=== PATIENT | male | born 1955 | race Caucasian/White ===

== ENCOUNTER 2017-06-21 15:44 | Inpatient (IN) ==
[2017-06-21 17:26] LABS: Basophils # 0.1 K/mcL (0.0-0.2); Basophils % 0.3 %; Eosinophils # 0.2 K/mcL (0.0-0.6); Eosinophils % 1.1 %; Hematocrit 40.9 % (37.5-50.1); Hemoglobin 14.3 g/dL (12.9-16.9); Immature Granulocytes % 0.6 % (0-4); Lymphocytes # 1.9 K/mcL (0.6-4.6); Lymphocytes % 10.7 %; Mean Corpuscular Hemoglobin 30.6 pg (28.0-33.3); Mean Corpuscular Volume 87.4 fL (83.0-100.0); Mean Platelet Volume 8.4 fL (9.4-12.4); Monocytes # 1.1 K/mcL (0.0-1.3); Monocytes % 6.1 %; Platelet Count 385 K/mcL (140-400); Red Blood Count 4.68 M/mcL (4.19-5.50); Red Cell Distribution Width 11.6 % (11.5-14.5); Segmented Neutrophils % 81.2 %
[2017-06-21] MEDS ORDERED: Ipratropium/Albuterol Neb 3 ML IH ONE (17:28)
[2017-06-21] MEDS ORDERED: Albuterol 2.5 MG/3 ML NEBULIZER IH ONE (17:28)
--- NOTE | 2017-06-21 17:31 | Emergency Department Note ---
Disposition Clinical Impression: Decompensated COPD with exacerbation (chronic obstructive pulmonary disease) Disposition: Admitted As Inpatient Condition: Serious General Adult HPI - General Chief complaint: ED Shortness of Breath/Dyspnea Stated complaint: EDILBERTO Time Seen by Provider: 06/21/17 17:27 Source: patient Limitations: no limitations - History of Present Illness Pain Scale: 0 - Related Data Home Medications Medication Instructions Recorded Confirmed Albuterol Sulfate [Proair Hfa] 2 puff IH QID 06/21/17 06/21/17 Ergocalciferol (VITAMIN D2) 50,000 unit PO QWEEK 06/21/17 06/21/17 [Vitamin D2] Fluticasone Propionate Nasal 2 spray NS DAILY 06/21/17 06/21/17 [Flonase] Fluticasone/Vilanterol [Breo 1 each IH DAILY 06/21/17 06/21/17 Ellipta 100-25 Mcg INH] Montelukast [Singulair] 10 mg PO DAILY 06/21/17 06/21/17 Naproxen [Naprosyn] 500 mg PO BID 06/21/17 06/21/17 Nystatin [Nystatin Suspension] 100,000 units PO QID 06/21/17 06/21/17 Sertraline [Zoloft] 50 mg PO DAILY 06/21/17 06/21/17 predniSONE [PredniSONE] 10 mg PO 06/21/17 Allergies Allergy/AdvReac Type Severity Reaction Status Date / Time No Known Allergies Allergy Verified 06/21/17 16:01 Past Medical History - Past Medical History Medical history: Reports: COPD Psychiatric history: Reports: depression - Social History Smoking Status: Current every day smoker Smokeless Tobacco Status: No Alcohol use: Reports: occasionally Drug use: Reports: none Physical Exam - General Limitations: no limitations General appearance: alert Course Vital Signs Temperature 98.2 F 06/21/17 16:01 Pulse Rate 94 06/21/17 16:01 Respiratory Rate 20 06/21/17 16:01 Blood Pressure 140/79 06/21/17 16:01 O2 Sat by Pulse Oximetry 96 06/21/17 16:01 Temperature 97.4 F L 06/21/17 23:34 Pulse Rate 102 06/21/17 23:34 Respiratory Rate 20 06/21/17 23:58 Blood Pressure 134/85 06/21/17 23:58 O2 Sat by Pulse Oximetry 98 06/21/17 23:58 Oxygen Delivery Oxygen Delivery Bipap Medical Decision Making - Lab Data Result diagrams: 06/21/17 17:15 06/21/17 22:04 Lab Results 06/21/17 06/21/17 06/21/17 Range/Units 17:15 17:15 17:15 WBC 17.3 H (4.3-11.1) K/mcL RBC 4.68 (4.19-5.50) M/mcL Hgb 14.3 (12.9-16.9) g/dL Hct 40.9 (37.5-50.1) % MCV 87.4 (83.0-100.0) fL MCH 30.6 (28.0-33.3) pg MCHC 35.0 (31.6-35.5) g/dL RDW 11.6 (11.5-14.5) % Plt Count 385 (140-400) K/mcL MPV 8.4 L (9.4-12.4) fL Immature Gran % 0.6 (0-4) % Seg Neutrophils % 81.2 % Lymphocytes % 10.7 % Monocytes % 6.1 % Eosinophils % 1.1 % Basophils % 0.3 % Neutrophils # 14.0 H (1.6-8.9) K/mcL Lymphocytes # 1.9 (0.6-4.6) K/mcL Monocytes # 1.1 (0.0-1.3) K/mcL Eosinophils # 0.2 (0.0-0.6) K/mcL Basophils # 0.1 (0.0-0.2) K/mcL VBG pH (7.32-7.42) pH Units VBG pCO2 (41-51) mmHg VBG pO2 (25-50) mmHg VBG HCO3 (21-27) mEq/L Sodium 124 L (136-145) mEq/L Potassium 4.5 (3.5-5.1) mEq/L Chloride 90 L (98-107) mEq/L Carbon Dioxide 29 (23-29) mEq/L BUN 7 L (8-23) mg/dL Creatinine 0.47 L (0.70-1.30) mg/dL Est GFR ( Amer) > 60 (> 60) Est GFR (Non-Af Amer) > 60 (> 60) BUN/Creatinine Ratio 15 (6-26) Glucose 108 H (70-105) mg/dL Calculated Osmolality 257 L (280-300) Calcium 9.0 (8.6-10.3) mg/dL Total Bilirubin 0.8 (0.3-1.0) mg/dL AST 23 (13-39) Units/L ALT 28 (7-52) Units/L Alkaline Phosphatase 107 H (34-104) Units/L Troponin I < 0.03 (< 0.04) ng/mL B-Natriuretic Peptide (Less than 100) pg/mL Serum Total Protein 6.6 (6.4-8.9) g/dL Albumin 4.0 (3.5-5.7) g/dL Globulin 2.6 (2.4-3.5) g/dL Albumin/Globulin Ratio 1.5 (1.1-2.2) 06/21/17 06/21/17 Range/Units 17:15 19:13 WBC (4.3-11.1) K/mcL RBC (4.19-5.50) M/mcL Hgb (12.9-16.9) g/dL Hct (37.5-50.1) % MCV (83.0-100.0) fL MCH (28.0-33.3) pg MCHC (31.6-35.5) g/dL RDW (11.5-14.5) % Plt Count (140-400) K/mcL MPV (9.4-12.4) fL Immature Gran % (0-4) % Seg Neutrophils % % Lymphocytes % % Monocytes % % Eosinophils % % Basophils % % Neutrophils # (1.6-8.9) K/mcL Lymphocytes # (0.6-4.6) K/mcL Monocytes # (0.0-1.3) K/mcL Eosinophils # (0.0-0.6) K/mcL Basophils # (0.0-0.2) K/mcL VBG pH 7.36 (7.32-7.42) pH Units VBG pCO2 54 H (41-51) mmHg VBG pO2 118 H (25-50) mmHg VBG HCO3 31 H (21-27) mEq/L Sodium (136-145) mEq/L Potassium (3.5-5.1) mEq/L Chloride (98-107) mEq/L Carbon Dioxide (23-29) mEq/L BUN (8-23) mg/dL Creatinine (0.70-1.30) mg/dL Est GFR ( Amer) (> 60) Est GFR (Non-Af Amer) (> 60) BUN/Creatinine Ratio (6-26) Glucose (70-105) mg/dL Calculated Osmolality (280-300) Calcium (8.6-10.3) mg/dL Total Bilirubin (0.3-1.0) mg/dL AST (13-39) Units/L ALT (7-52) Units/L Alkaline Phosphatase (34-104) Units/L Troponin I (< 0.04) ng/mL B-Natriuretic Peptide 63 (Less than 100) pg/mL Serum Total Protein (6.4-8.9) g/dL Albumin (3.5-5.7) g/dL Globulin (2.4-3.5) g/dL Albumin/Globulin Ratio (1.1-2.2) Critical Care Time Critical Care Time: Yes Total Critical Care Time: 30 Attestation: The high probability of a clinically significant, sudden or life threatening deterioration of the [] system(s) required my full and direct attention, intervention and personal management. The aggregate critical care time was [] minutes. This time is in addition to time spent performing reported procedures but includes the following: [] Data Review and interpretation [] Patient assessment and monitoring of vital signs [] Documentation [] Medication orders and management Attestation Statement - Attestation Attestation: I examined this patient and my medical decision-making was reviewed with the Resident Physician. I agree with the documented findings, disposition and treatment plan as described except to the extent set forth below. [id number] time provided Patient arrives in the care of his family complaining of dyspnea. He has a history of COPD. Sounds congested on exam. 18:58: The patient continues to be dyspneic. He is now anxious. BiPAP therapy initiated
--- NOTE | 2017-06-21 17:31 | Emergency Department Note ---
Disposition Clinical Impression: Decompensated COPD with exacerbation (chronic obstructive pulmonary disease) Disposition: Admitted As Inpatient Condition: Serious Time of Disposition: 19:31 SOB HPI - General Chief Complaint: ED Shortness of Breath/Dyspnea Stated Complaint: EDILBERTO Time Seen by Provider: 06/21/17 17:27 Source: patient Limitations: no limitations Nursing Notes Reviewed: Yes Vital Signs Reviewed: Yes - History of Present Illness Patient complains of worsening shortness of breath that started early this morning. Patient states at around 3 PM today he became unable to tolerate his shortness of breath with chest tightness. Patient has history COPD and his been on repeat treatments for the past month. he denies any fevers or chest pain. - Related Data Home Medications Medication Instructions Recorded Confirmed Albuterol Sulfate [Proair Hfa] 2 puff IH QID 06/21/17 06/21/17 Ergocalciferol (VITAMIN D2) 50,000 unit PO QWEEK 06/21/17 06/21/17 [Vitamin D2] Fluticasone Propionate Nasal 2 spray NS DAILY 06/21/17 06/21/17 [Flonase] Fluticasone/Vilanterol [Breo 1 each IH DAILY 06/21/17 06/21/17 Ellipta 100-25 Mcg INH] Montelukast [Singulair] 10 mg PO DAILY 06/21/17 06/21/17 Naproxen [Naprosyn] 500 mg PO BID 06/21/17 06/21/17 Nystatin [Nystatin Suspension] 100,000 units PO QID 06/21/17 06/21/17 Sertraline [Zoloft] 50 mg PO DAILY 06/21/17 06/21/17 predniSONE [PredniSONE] 10 mg PO 06/21/17 Allergies Allergy/AdvReac Type Severity Reaction Status Date / Time No Known Allergies Allergy Verified 06/21/17 16:01 All systems ED: reviewed and negative except as stated. Review of Systems: As Per HPI Constitutional: Denies: fever Eyes: Denies: vision change ENT ED: Reports: congestion Cardiovascular: Denies: chest pain, palpitations Respiratory: Reports: cough, dyspnea, wheezes Gastrointestinal: Denies: abdominal pain, nausea, vomiting Past Medical History - Past Medical History Attestation: Yes The following information was validated with the patient. Source: patient, nursing notes reviewed Medical history: Reports: COPD Psychiatric history: Reports: depression - Social History Smoking Status: Current every day smoker Smokeless Tobacco Status: No Alcohol use: Reports: occasionally Drug use: Reports: none Physical Exam Vital Signs Temperature 98.2 F 06/21/17 16:01 Pulse Rate 94 06/21/17 16:01 Respiratory Rate 20 06/21/17 16:01 Blood Pressure 140/79 06/21/17 16:01 O2 Sat by Pulse Oximetry 96 06/21/17 16:01 Temperature 98.2 F 06/21/17 16:01 Pulse Rate 94 06/21/17 16:01 Respiratory Rate 24 06/21/17 17:33 Blood Pressure 140/79 06/21/17 16:01 O2 Sat by Pulse Oximetry 96 06/21/17 17:33 Oxygen Delivery Oxygen Delivery Room Air 61-year-old male who is alert and oriented 3 and in acute respiratory distress. Patient has conversational dyspnea and hoarseness. Patient sounds like he is gasping for air. Patient is currently afebrile and has normal vital signs. - General Limitations: no limitations General appearance: alert - Head Head exam: atraumatic, normocephalic, normal inspection - Eye Eye exam: Present: normal appearance, PERRL, EOMI - ENT ENT exam: normal exam, normal oropharynx, mucous membranes moist - Neck Neck exam: Present: normal inspection, full ROM, trachea midline - Chest Chest inspection: Present: normal inspection, symmetric chest wall rise. Absent : tenderness - Respiratory Respiratory exam: Present: respiratory distress, prolonged expiratory phase, other (Poor air movement bilaterally) - Cardiovascular Cardiovascular exam: Present: regular rate, normal rhythm, normal heart sounds - Abdominal Exam Abdominal exam: Present: soft, Non-Tender. Absent: tenderness, distention, guarding, rebound, rigidity Course Vital Signs Temperature 98.2 F 06/21/17 16:01 Pulse Rate 94 06/21/17 16:01 Respiratory Rate 20 06/21/17 16:01 Blood Pressure 140/79 06/21/17 16:01 O2 Sat by Pulse Oximetry 96 06/21/17 16:01 Temperature 97.4 F L 06/21/17 23:34 Pulse Rate 102 06/21/17 23:34 Respiratory Rate 23 06/21/17 23:34 Blood Pressure 134/83 06/21/17 23:34 O2 Sat by Pulse Oximetry 97 06/21/17 23:34 Oxygen Delivery Oxygen Delivery Bipap Shortness of Breath/Dyspnea - [facility] Narrative Medical decision making narrative: COPD exacerbation, patient is tachycardic to rule out any underlying cardiac pathology with lab work EKG and chest x-ray. 1821 hrs.: Patient is breathing better and has lessened conversational dyspnea but states he is feeling tired from breathing on the DuoNeb. Patient states he does not want to try BiPAP. Patient will be reevaluated once DuoNeb to complete. Patient's lab work unremarkable for elevations of troponin, 1845: Patient sitting up at the side of the bed and having a difficult time breathing. Patient is tiring from respiratory load. Patient requires BiPAP and will be given 1 mg of Ativan to help calm him down to tolerate BiPAP. 1715 hrs.: Still waiting BiPAP Patient on BiPAP now and is calming down. He states he is feeling all better. Patient's VBG shows elevation of bicarbonate which is appropriate for patient's rise in CO2. Patient being admitted for COPD exacerbation requiring BiPAP to to prevent respiratory failure. Patient accepts this is for admission. Dr. Davis the hospitalist as except the patient for admission at 1929 hrs. - Lab Data Lab results reviewed: Yes I reviewed the patient's lab results. Lab results narrative: Short CBC 06/21/17 Range/Units 17:15 WBC 17.3 H (4.3-11.1) K/mcL Hgb 14.3 (12.9-16.9) g/dL Hct 40.9 (37.5-50.1) % Plt Count 385 (140-400) K/mcL Neutrophils # 14.0 H (1.6-8.9) K/mcL BMP 06/21/17 Range/Units 17:15 Sodium 124 L (136-145) mEq/L Potassium 4.5 (3.5-5.1) mEq/L Chloride 90 L (98-107) mEq/L Carbon Dioxide 29 (23-29) mEq/L BUN 7 L (8-23) mg/dL Creatinine 0.47 L (0.70-1.30) mg/dL Glucose 108 H (70-105) mg/dL Calcium 9.0 (8.6-10.3) mg/dL Cardiac Enzymes 06/21/17 Range/Units 17:15 Troponin I < 0.03 (< 0.04) ng/mL Liver Function 06/21/17 Range/Units 17:15 Total Bilirubin 0.8 (0.3-1.0) mg/dL AST 23 (13-39) Units/L ALT 28 (7-52) Units/L Alkaline Phosphatase 107 H (34-104) Units/L Albumin 4.0 (3.5-5.7) g/dL Result diagrams: 06/21/17 17:15 06/21/17 22:04 Lab Results 06/21/17 06/21/17 06/21/17 Range/Units 17:15 17:15 17:15 WBC 17.3 H (4.3-11.1) K/mcL RBC 4.68 (4.19-5.50) M/mcL Hgb 14.3 (12.9-16.9) g/dL Hct 40.9 (37.5-50.1) % MCV 87.4 (83.0-100.0) fL MCH 30.6 (28.0-33.3) pg MCHC 35.0 (31.6-35.5) g/dL RDW 11.6 (11.5-14.5) % Plt Count 385 (140-400) K/mcL MPV 8.4 L (9.4-12.4) fL Immature Gran % 0.6 (0-4) % Seg Neutrophils % 81.2 % Lymphocytes % 10.7 % Monocytes % 6.1 % Eosinophils % 1.1 % Basophils % 0.3 % Neutrophils # 14.0 H (1.6-8.9) K/mcL Lymphocytes # 1.9 (0.6-4.6) K/mcL Monocytes # 1.1 (0.0-1.3) K/mcL Eosinophils # 0.2 (0.0-0.6) K/mcL Basophils # 0.1 (0.0-0.2) K/mcL VBG pH (7.32-7.42) pH Units VBG pCO2 (41-51) mmHg VBG pO2 (25-50) mmHg VBG HCO3 (21-27) mEq/L Sodium 124 L (136-145) mEq/L Potassium 4.5 (3.5-5.1) mEq/L Chloride 90 L (98-107) mEq/L Carbon Dioxide 29 (23-29) mEq/L BUN 7 L (8-23) mg/dL Creatinine 0.47 L (0.70-1.30) mg/dL Est GFR ( Amer) > 60 (> 60) Est GFR (Non-Af Amer) > 60 (> 60) BUN/Creatinine Ratio 15 (6-26) Glucose 108 H (70-105) mg/dL Calculated Osmolality 257 L (280-300) Calcium 9.0 (8.6-10.3) mg/dL Total Bilirubin 0.8 (0.3-1.0) mg/dL AST 23 (13-39) Units/L ALT 28 (7-52) Units/L Alkaline Phosphatase 107 H (34-104) Units/L Troponin I < 0.03 (< 0.04) ng/mL B-Natriuretic Peptide (Less than 100) pg/mL Serum Total Protein 6.6 (6.4-8.9) g/dL Albumin 4.0 (3.5-5.7) g/dL Globulin 2.6 (2.4-3.5) g/dL Albumin/Globulin Ratio 1.5 (1.1-2.2) 06/21/17 06/21/17 Range/Units 17:15 19:13 WBC (4.3-11.1) K/mcL RBC (4.19-5.50) M/mcL Hgb (12.9-16.9) g/dL Hct (37.5-50.1) % MCV (83.0-100.0) fL MCH (28.0-33.3) pg MCHC (31.6-35.5) g/dL RDW (11.5-14.5) % Plt Count (140-400) K/mcL MPV (9.4-12.4) fL Immature Gran % (0-4) % Seg Neutrophils % % Lymphocytes % % Monocytes % % Eosinophils % % Basophils % % Neutrophils # (1.6-8.9) K/mcL Lymphocytes # (0.6-4.6) K/mcL Monocytes # (0.0-1.3) K/mcL Eosinophils # (0.0-0.6) K/mcL Basophils # (0.0-0.2) K/mcL VBG pH 7.36 (7.32-7.42) pH Units VBG pCO2 54 H (41-51) mmHg VBG pO2 118 H (25-50) mmHg VBG HCO3 31 H (21-27) mEq/L Sodium (136-145) mEq/L Potassium (3.5-5.1) mEq/L Chloride (98-107) mEq/L Carbon Dioxide (23-29) mEq/L BUN (8-23) mg/dL Creatinine (0.70-1.30) mg/dL Est GFR ( Amer) (> 60) Est GFR (Non-Af Amer) (> 60) BUN/Creatinine Ratio (6-26) Glucose (70-105) mg/dL Calculated Osmolality (280-300) Calcium (8.6-10.3) mg/dL Total Bilirubin (0.3-1.0) mg/dL AST (13-39) Units/L ALT (7-52) Units/L Alkaline Phosphatase (34-104) Units/L Troponin I (< 0.04) ng/mL B-Natriuretic Peptide 63 (Less than 100) pg/mL Serum Total Protein (6.4-8.9) g/dL Albumin (3.5-5.7) g/dL Globulin (2.4-3.5) g/dL Albumin/Globulin Ratio (1.1-2.2) - Radiology Data Radiology results reviewed: Yes I reviewed the patient's radiology results. Chest X-Ray 06/21/17 16:05 IMPRESSION: No acute disease. D/ / Blayne Stewart MD / Blayne Stewart MD Interpreting Provider: Blayne Stewart MD - EKG Data EKG attestation: Yes I reviewed and interpreted this EKG. EKG results narrative: EKG taken 06/21/2017 at 1557 hrs. shows a sinus rhythm at a rate of 89 beats minute with no acute ST elevations or depressions and any leads, no QRS widened QT prolongation.
[2017-06-21 17:42] LABS: Alanine Aminotransferase 28 Units/L (7-52); Albumin/Globulin Ratio 1.5 (1.1-2.2); Alkaline Phosphatase 107 Units/L (34-104); Aspartate Amino Transferase 23 Units/L (13-39); BUN/Creatinine Ratio 15 (6-26); Bilirubin,Total 0.8 mg/dL (0.3-1.0); Blood Urea Nitrogen 7 mg/dL (8-23); Carbon Dioxide 29 mEq/L (23-29); Chloride 90 mEq/L (98-107); Globulin 2.6 g/dL (2.4-3.5); Glucose 108 mg/dL (70-105); Osmolality,Calculated 257 (280-300); Potassium 4.5 mEq/L (3.5-5.1); Sodium 124 mEq/L (136-145); Total Protein 6.6 g/dL (6.4-8.9); eGFR For African Americans > 60 (> 60); eGFR For Non-African Americans > 60 (> 60)
[2017-06-21] MEDS ORDERED: methylPREDNISolone 125 MG/2 ML VIAL IVP ONE (18:13)
[2017-06-21] MEDS ORDERED: 0.9 % Sodium Chloride 1,000 ML IVC ONE (18:13)
[2017-06-21] MEDS ORDERED: *HR* LORazepam 2 MG/ML VIAL IVP ONE (18:57)
[2017-06-21 19:17] LABS: VBG HCO3 31 mEq/L (21-27); VBG PCO2 54 mmHg (41-51); VBG PH 7.36 pH Units (7.32-7.42); VBG PO2 118 mmHg (25-50)
[2017-06-21] MEDS ORDERED: Naloxone 0.4 MG/ML INJ IVP PRN (19:47)
[2017-06-21] MEDS ORDERED: Acetaminophen 325 MG TABLET PO PRN (19:47)
[2017-06-21] MEDS ORDERED: Azithromycin 500 MG in D5% in Water 250 ML IVPB SCH (20:00)
[2017-06-21] MEDS ORDERED: Ipratropium 1 PUFF INHALER IH SCH (20:00)
--- NOTE | 2017-06-21 21:22 | Internal Med History&Physical ---
Date of Encounter: 06/21/17 Time of Encounter: 08:20 Assessment and Plan (1) Acute hypercapnic respiratory failure Current visit: Yes Status: Acute Admit inpatient. Will treat with O2 supplementation. BiPAP use as needed. Patient is currently on BiPAP. Will wean as tolerated. High risk for complications. (2) Hyponatremia Current visit: Yes Status: Acute Sodium 124 and chloride 90. Likely hypovolemic hyponatremia. We will treat with IV fluids. Would also check urine electrolytes and sodium levels. (3) Decompensated COPD with exacerbation (chronic obstructive pulmonary disease) Current visit: Yes Status: Acute Patient does have acute COPD exacerbation. Will treat with bronchodilators, O2 supplementation. IV azithromycin and IV steroids. Will get CT scan of the chest as chest x-ray shows changes of chronic granulomatous disease. Internal Medicine - H&P: HPI Chief complaint: Shortness of breath Admitted From: Emergency Dept Plans for Post Hospital Care: Home History of present illness: Mr. Farooq is a 61 year old male patient with past medical history of COPD, chronic smoking presented to the ER with complaints of shortness of breath. Symptoms have been going on for about 4 weeks now with no improvement. He had been seen at an urgent care clinic 4 weeks back for his symptoms and at that time was placed on steroids and given inhalers. His symptoms have not improved and he has continued to have cough and significant shortness of breath. According to patient's family, he had been advised to undergo a CT scan of the chest after his chest x-ray showed an abnormal lesion. However he has not been able to get that done due to issues with insurance and radiology Department. He is presently somnolent as he was given Ativan for anxiety and so most of the history has been obtained from family members and through review of ED record. Patient has been having cough without any sputum production. Has not had any chest pain. Patient used to smoke 3 packs per day until he was diagnosed with COPD. He is now cutting down to less than pack a day. 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 - Constitutional Constitutional: malaise, no chills, no fever(s), no night sweats - Respiratory Respiratory: cough, dyspnea, wheezing - Constitutional Vitals: Temp Pulse Resp BP Pulse Ox 98.2 F 101 21 114/74 95 06/21/17 16:01 06/21/17 19:06 06/21/17 20:55 06/21/17 20:28 06/21/17 20:55 General appearance: Present: cooperative, severe distress, underweight - Neck Neck exam general surgery: Present: supple, trachea midline. Absent: lymphadenopathy - Respiratory Respiratory exam: Present: prolonged expiratory phase, respiratory distress, wheezes (Bilateral). Absent: accessory muscle use, rales, rhonchi - Cardiovascular Cardiovascular exam: Present: RRR, +S1, +S2. Absent: diastolic murmur, gallop, rubs, systolic murmur - GI/Abdominal GI/Abdominal exam: Present: normal bowel sounds, soft, no peritoneal signs. Absent: distended, tenderness - Extremities Exam Extremities exam: Present: warm, radial pulses palpable and symmetrical. Absent : calf tenderness, cyanotic, pedal edema - Neurological Exam Neurological exam: Present: no focal deficits. Absent: facial droop, speech deficit Additional comments: Somnolent at this time - Skin Skin exam: Present: dry, intact Internal Med - H&P Results - Labs CBC & Chem 7: 06/21/17 17:15 06/21/17 17:15 - Impressions Impressions Chest X-Ray 06/21/17 16:05 IMPRESSION: No acute disease. D/ / Blayne Stewart MD / Blayne Stewart MD Interpreting Provider: Blayne Stewart MD
[2017-06-21] MEDS: Albuterol 2.5 MG/3 ML NEBULIZER IH PRN (21:34)
[2017-06-21] MEDS: Budesonide/Formoterol 160/4.5 MDI IH SCH (21:35)
[2017-06-21] MEDS: 0.9 % Sodium Chloride 1,000 ML IVC SCH (22:13)
[2017-06-21] MEDS: Ipratropium/Albuterol Neb 3 ML IH SCH (23:58)
[2017-06-22] MEDS: MethylPREDNISolone 40 MG/ML VIAL IVP SCH ×4 (00:30→16:54)
[2017-06-22] MEDS: Ipratropium/Albuterol Neb 3 ML IH SCH ×6 (05:17→23:04)
[2017-06-22 05:39] LABS: Basophils % 0.1 %; Mean Corpuscular HGB Conc 33.7 g/dL (31.6-35.5); Monocytes % 1.9 %; Red Cell Distribution Width 11.7 % (11.5-14.5)
[2017-06-22 05:41] LABS: Hematocrit 40.1 % (37.5-50.1); Hemoglobin 13.5 g/dL (12.9-16.9); Immature Granulocytes % 0.6 % (0-4); Lymphocytes # 0.6 K/mcL (0.6-4.6); Lymphocytes % 2.1 %; Mean Corpuscular Hemoglobin 30.1 pg (28.0-33.3); Mean Corpuscular Volume 89.5 fL (83.0-100.0); Mean Platelet Volume 8.7 fL (9.4-12.4); Monocytes # 0.6 K/mcL (0.0-1.3); Platelet Count 379 K/mcL (140-400); Red Blood Count 4.48 M/mcL (4.19-5.50); Segmented Neutrophils % 95.3 %
[2017-06-22 05:43] LABS: Neutrophils # 28.1 K/mcL (1.6-8.9)
[2017-06-22 05:56] LABS: BUN/Creatinine Ratio 20 (6-26); Blood Urea Nitrogen 10 mg/dL (8-23); Calcium 8.9 mg/dL (8.6-10.3); Carbon Dioxide 32 mEq/L (23-29); Chloride 90 mEq/L (98-107); Glucose 135 mg/dL (70-105); Osmolality,Calculated 263 (280-300); Potassium 4.9 mEq/L (3.5-5.1); Sodium 126 mEq/L (136-145); eGFR For African Americans > 60 (> 60); eGFR For Non-African Americans > 60 (> 60)
[2017-06-22 06:13] LABS: Platelet Estimate Normal (Normal); Reactive Lymphocytes Present (Not Present)
[2017-06-22 07:45] LABS: Bilirubin,Urine Negative (Negative); Blood,Urine Small (Negative); Clarity,Urine Clear (Clear); Color,Urine Yellow (Yellow); Glucose,Urine (UA) Normal (Normal); Ketones,Urine Negative (Negative); Leukocyte Esterase,Urine Negative (Negative); Nitrite,Urine Negative (Negative); PH,Urine 6.5 pH Units (5.0-8.0); Protein,Urine Negative (Neg-Trace); Specific Gravity,Urine 1.019 (1.010-1.025); Urobilinogen,Urine Normal (Normal)
[2017-06-22 07:47] LABS: Hyaline Casts,Urine None Seen per lpf (None-Few)
[2017-06-22 07:49] LABS: Sodium, Urine 117.1 mEq/L
[2017-06-22 08:07] LABS: Bacteria,Urine Few per hpf (None-Few); Squamous Epithelial Cell,Urine Few per lpf (None-Few)
[2017-06-22] MEDS: Budesonide/Formoterol 160/4.5 MDI IH SCH ×2 (08:15→21:23)
[2017-06-22] MEDS: 0.9 % Sodium Chloride 1,000 ML IVC SCH ×3 (08:31→21:40)
[2017-06-22] MEDS: Levofloxacin 750 MG/150 ML 750 MG/150 ML BAG IVPB SCH (08:31)
[2017-06-22 11:02] LABS: Adenovirus Not Detected (Not Detect); Bordetella Pertussis Not Detected (Not Detect); Chlamydophila pneumoniae Not Detected (Not Detect); Coronavirus 229E Not Detected (Not Detect); Coronavirus HKU1 Not Detected (Not Detect); Coronavirus NL63 Not Detected (Not Detect); Coronavirus OC43 Not Detected (Not Detect); Human Metapneumovirus Not Detected (Not Detect); Human Rhinovirus/Enterovirus Not Detected (Not Detect); Influenza A Subtype 2009 H1 Not Detected (Not Detect); Influenza A Untypeable Not Detected (Not Detect); Influenza B Not Detected (Not Detect); Mycoplasma pneumoniae Not Detected (Not Detect); Parainfluenza Virus 1 Not Detected (Not Detect); Parainfluenza Virus 2 Not Detected (Not Detect); Parainfluenza Virus 3 Not Detected (Not Detect); Parainfluenza Virus 4 Not Detected (Not Detect); Respiratory Syncytial Virus Not Detected (Not Detect)
--- NOTE | 2017-06-22 15:21 | Internal Med Progress Note ---
Date of Encounter: 06/22/17 Time of Encounter: 13:00 - Assessment and plan (1) Acute respiratory failure with hypoxia Current Visit: Yes Status: Acute Assessment and plan: Improving slowly currently on 3 lit O2 cont Duoneb TATYANA Cont high dose IV Steroids..since he still does have diffuse wheezing will use BiPAP PRN May need home O2 eval (2) Acute hypercapnic respiratory failure Current Visit: Yes Status: Acute Assessment and plan: Reviewed VBG from last night showed moderate hypercapnea now off the BiPAP he is more alert, awake and O x 3 (3) COPD with acute exacerbation Current Visit: Yes Status: Acute Assessment and plan: must be triggered by bronchitis and smoking with his chronic weight loss, SOB for x 1 month will get a CT of chest for better eval scheduled for PFT as an out pt (4) Acute bronchitis Current Visit: Yes Status: Acute Assessment and plan: mostly bacterial cont empirical abx His resp viral panel - negative Qualifiers: Qualified Code(s): J20.9 - Acute bronchitis, unspecified (5) Tobacco dependence Current Visit: Yes Status: Acute Assessment and plan: counseled to quit on nicotine patch (6) Alcohol dependence Current Visit: Yes Status: Acute Assessment and plan: counseled to stop drinking he has not have alcohol for one week unlikely he goes to withdrawl symptoms however will monitor closely check LFT and Mg in AM on Ativan PRN for anxiety Qualifiers: Complication of substance-induced condition: uncomplicated Qualified Code(s ): F10.230 - Alcohol dependence with withdrawal, uncomplicated (7) Protein-calorie malnutrition, mild Current Visit: Yes Status: Acute Assessment and plan: utility service worker consulted (8) Hyponatremia Current Visit: Yes Status: Acute Assessment and plan: mild hyponatremia - due to dehydration + Chronic alcohol related improving slowly cont close monitoring will check Na and Mg level now.. adjust fluids accordingly - Subjective Interval history: Mr. Farooq is a 61 year old male patient with past medical history of COPD, chronic smoking, chronic alcoholic dependence who presented to the ER with complaints worsening SOB from last one week. Symptoms have been going on for about 4 weeks now with no improvement. He had been seen at an urgent care clinic 4 weeks back for his symptoms and at that time was placed on steroids and given inhalers. His symptoms have not improved and he has continued to have cough and significant shortness of breath. According to patient's family, he had been advised to undergo a CT scan of the chest after his chest x-ray showed an abnormal lesion. However he has not been able to get that done due to issues with insurance and radiology Department. Patient used to smoke 3 packs per day until he was diagnosed with COPD. He is now cutting down to less than pack a day He was admitted in the hospital with COPD exacerbation, hypoxic and hypercapneic resp failure. Now he is off the BiPAP, he is alert, awake and O x 3. Still has moderate SOB and NICOLE. Denied any CP. He did mention that he drinks 12 beer a day, but he has not have alcohol for one week. - Constitutional Vitals: Temp Pulse Resp BP Pulse Ox 98.1 F 98 18 115/74 98 06/22/17 11:15 06/22/17 11:15 06/22/17 11:26 06/22/17 11:15 06/22/17 11:26 General appearance: Present: cooperative, A&O X 3, underweight, answers questions appropriately - Head Head exam: Present: atraumatic, normal inspection - Neck Neck exam general surgery: Present: supple - Respiratory Respiratory exam: Present: decreased breath sounds, wheezes (diffuse +++). Absent: rales, respiratory distress, rhonchi - Cardiovascular Cardiovascular exam: Present: RRR, +S1, +S2. Absent: tachycardia - GI/Abdominal GI/Abdominal exam: Present: normal bowel sounds, soft. Absent: rebound, rigid, tenderness - Extremities Exam Extremities exam: Absent: calf tenderness, pedal edema, tenderness Additional comments: Rt BKA - Back Exam Back exam: Absent: CVA tenderness (L), CVA tenderness (R) - Neurological Exam Neurological exam: Present: alert, oriented X3 - Psychiatric Psychiatric exam: Present: anxious Internal Medicine: Result - Labs CBC & Chem 7: 06/22/17 05:16 06/22/17 05:16 Labs: Short CBC 06/22/17 Range/Units 05:16 WBC 29.5 H D (4.3-11.1) K/mcL Hgb 13.5 (12.9-16.9) g/dL Hct 40.1 (37.5-50.1) % Plt Count 379 (140-400) K/mcL Neutrophils # 28.1 H (1.6-8.9) K/mcL BMP 06/21/17 06/22/17 06/22/17 22:04 00:37 01:40 Sodium 126 L 125 L 125 L Potassium Chloride Carbon Dioxide BUN Creatinine Glucose Calcium 06/22/17 05:16 Sodium 126 L Potassium 4.9 Chloride 90 L Carbon Dioxide 32 H BUN 10 Creatinine 0.50 L Glucose 135 H Calcium 8.9 Urine 06/22/17 Range/Units 07:30 Urine Color Yellow (Yellow) Urine Clarity Clear (Clear) Urine pH 6.5 (5.0-8.0) pH Units Ur Specific [place] 1.019 (1.010-1.025) Urine Protein Negative (Neg-Trace) mg/dL Urine Glucose (UA) Normal (Normal) mg/dL Consult Discharge Plan - Plan Referrals: Sandra Aguirre MD [Primary Care Provider] -
[2017-06-22 16:03] LABS: Magnesium 1.9 mg/dL (1.6-2.6)
[2017-06-22] MEDS: *HR* LORazepam 0.5 MG TABLET PO PRN (21:39)
[2017-06-23] MEDS: MethylPREDNISolone 40 MG/ML VIAL IVP SCH ×3 (00:03→15:57)
[2017-06-23] MEDS: Ipratropium/Albuterol Neb 3 ML IH SCH ×3 (03:52→11:48)
[2017-06-23] MEDS: Budesonide/Formoterol 160/4.5 MDI IH SCH ×2 (07:52→22:32)
[2017-06-23 08:15] LABS: Mean Platelet Volume 8.9 fL (9.4-12.4); Monocytes % 2.8 %
[2017-06-23 08:17] LABS: Basophils % 0.2 %; Hematocrit 35.3 % (37.5-50.1); Hemoglobin 11.7 g/dL (12.9-16.9); Lymphocytes # 0.7 K/mcL (0.6-4.6); Lymphocytes % 2.8 %; Mean Corpuscular HGB Conc 33.1 g/dL (31.6-35.5); Mean Corpuscular Hemoglobin 29.7 pg (28.0-33.3); Mean Corpuscular Volume 89.6 fL (83.0-100.0); Monocytes # 0.7 K/mcL (0.0-1.3); Neutrophils # 23.7 K/mcL (1.6-8.9); Platelet Count 341 K/mcL (140-400); Red Blood Count 3.94 M/mcL (4.19-5.50); Red Cell Distribution Width 11.7 % (11.5-14.5); Segmented Neutrophils % 93.2 %
[2017-06-23 08:21] LABS: Basophils # 0.1 K/mcL (0.0-0.2)
[2017-06-23 09:03] LABS: Platelet Estimate Normal (Normal)
[2017-06-23] MEDS: Levofloxacin 750 MG/150 ML 750 MG/150 ML BAG IVPB SCH (09:07)
[2017-06-23 09:28] LABS: Alanine Aminotransferase 22 Units/L (7-52); Albumin 3.2 g/dL (3.5-5.7); Albumin/Globulin Ratio 1.6 (1.1-2.2); Alkaline Phosphatase 79 Units/L (34-104); Aspartate Amino Transferase 14 Units/L (13-39); BUN/Creatinine Ratio 26 (6-26); Bilirubin,Total 0.4 mg/dL (0.3-1.0); Blood Urea Nitrogen 11 mg/dL (8-23); Calcium 8.7 mg/dL (8.6-10.3); Carbon Dioxide 33 mEq/L (23-29); Chloride 100 mEq/L (98-107); Glucose 123 mg/dL (70-105); Magnesium 2.1 mg/dL (1.6-2.6); Osmolality,Calculated 281 (280-300); Potassium 4.3 mEq/L (3.5-5.1); Sodium 135 mEq/L (136-145); Total Protein 5.2 g/dL (6.4-8.9); eGFR For African Americans > 60 (> 60); eGFR For Non-African Americans > 60 (> 60)
--- NOTE | 2017-06-23 12:26 | Internal Med Progress Note ---
Date of Encounter: 06/23/17 Time of Encounter: 12:25 - Assessment and plan (1) Pneumonia Current Visit: Yes Status: Acute Assessment and plan: CT chest findings concerning for b/l Lower lobe PNA (right greater than left) continue Levaquin f/u blood cultures Qualifiers: Pneumonia type: due to unspecified organism Laterality: bilateral Lung location: lower lobe of lung Qualified Code(s): J18.9 - Pneumonia, unspecified organism (2) Acute bronchitis Current Visit: Yes Status: Acute Assessment and plan: mostly bacterial cont empirical abx His resp viral panel - negative Qualifiers: Qualified Code(s): J20.9 - Acute bronchitis, unspecified (3) Acute hypercapnic respiratory failure Current Visit: Yes Status: Acute Assessment and plan: clinically improving saturating well on nasal cannula will need O2 qualification testing prior to discharge Bipap at bedtime (4) Acute respiratory failure with hypoxia Current Visit: Yes Status: Acute Assessment and plan: Improving slowly currently on 3 lit O2 cont Duoneb TATYANA Cont high dose IV Steroids..since he still does have diffuse wheezing will use BiPAP PRN will need home O2 eval (5) Alcohol dependence Current Visit: Yes Status: Acute Assessment and plan: counseled to stop drinking he has not have alcohol for one week unlikely he goes to withdrawal symptoms however will monitor closely on Ativan PRN for anxiety Qualifiers: Complication of substance-induced condition: uncomplicated Qualified Code(s ): F10.230 - Alcohol dependence with withdrawal, uncomplicated (6) COPD with acute exacerbation Current Visit: Yes Status: Acute Assessment and plan: continue systemic steroids bronchodilator support o2 supplementation outpatient PFT evaluation (7) Hyponatremia Current Visit: Yes Status: Acute Assessment and plan: mild hyponatremia - due to dehydration + Chronic alcohol related improving slowly cont close monitoring (8) Protein-calorie malnutrition, mild Current Visit: Yes Status: Acute Assessment and plan: camp nurse consulted (9) Tobacco dependence Current Visit: Yes Status: Acute Assessment and plan: counseled to quit on nicotine patch - Subjective Interval history: Patient seen and examined with present at bedside. Sitting in chair and reports of feeling better compared to the previous day. Currently saturating well on nasal cannula. Tolerated bipap support overnight. - Constitutional Vitals: Temp Pulse Resp BP Pulse Ox 97.9 F 87 14 129/71 97 06/23/17 09:59 06/23/17 09:59 06/23/17 09:59 06/23/17 09:59 06/23/17 09:59 General appearance: Present: cooperative, A&O X 3, no acute distress, underweight, answers questions appropriately - Head Head exam: Present: atraumatic, normocephalic - Eye Eye exam: Present: conjuntiva pink, sclera anicteric - Respiratory Respiratory exam: Absent: accessory muscle use, respiratory distress (coarse breath sounds diffusely) - Cardiovascular Cardiovascular exam: Present: RRR, +S1, +S2. Absent: diastolic murmur, gallop, rubs, systolic murmur - GI/Abdominal GI/Abdominal exam: Present: normal bowel sounds, soft, no peritoneal signs. Absent: distended, tenderness - Extremities Exam Extremities exam: Present: warm, radial pulses palpable and symmetrical. 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 ) - Neurological Exam Neurological exam: Present: alert, oriented X3 - Psychiatric Psychiatric exam: Present: normal affect, normal mood Internal Medicine: Result - Labs CBC & Chem 7: 06/23/17 07:36 06/23/17 07:36 Labs: Short CBC 06/23/17 Range/Units 07:36 WBC 25.4 H (4.3-11.1) K/mcL Hgb 11.7 L D (12.9-16.9) g/dL Hct 35.3 L (37.5-50.1) % Plt Count 341 (140-400) K/mcL Neutrophils # 23.7 H (1.6-8.9) K/mcL BMP 06/22/17 06/23/17 15:38 07:36 Sodium 129 L 135 L Potassium 4.3 Chloride 100 Carbon Dioxide 33 H BUN 11 Creatinine 0.42 L Glucose 123 H Calcium 8.7 Liver Function 06/23/17 Range/Units 07:36 Total Bilirubin 0.4 (0.3-1.0) mg/dL AST 14 (13-39) Units/L ALT 22 (7-52) Units/L Alkaline Phosphatase 79 (34-104) Units/L Albumin 3.2 L (3.5-5.7) g/dL - Impressions Impressions Chest CT 06/22/17 00:00 IMPRESSION: 1. Bilateral posterior basal lower lobe airspace consolidation right greater than left with the rest of the posterior portions of the lower lobes showing discrete and confluent nodular and ground-glass densities. Findings most likely due to pneumonia. Two to three month follow-up after treatment recommended to confirm resolution of findings. D/ / Jim Carbajal MD / Jim Carbajal MD Interpreting Provider: Jim Carbajal MD Consult Discharge Plan - Plan Referrals: Sandra Aguirre MD [Primary Care Provider] -
[2017-06-23] MEDS: 0.9 % Sodium Chloride 1,000 ML IVC SCH (13:18)
--- NOTE | 2017-06-23 16:19 | Electrocardiograph Report ---
[address] [address] Test Date: 2017-06-21 Pat Name: Juanpablo Farooq Department: 104 Room: 2NE26 Gender: M Staff Writer: : 1955 Requested By: Miriam John Order Number: [id number] Reading MD: Srinath Carnes Measurements Intervals [place] Rate: 89 P: 49 TN: 141 QRS: 61 QRSD: 81 T: 73 QT: 353 QTc: 400 Interpretive Statements SINUS RHYTHM Electronically Signed On 06-23-2017 16:17:32 EST by Srinath Carnes
[2017-06-23] MEDS: Nystatin SUSP 5 ML UD.LIQ PO SCH ×2 (18:20→22:45)
[2017-06-23] MEDS: Albuterol 2.5 MG/3 ML NEBULIZER IH PRN (22:32)
[2017-06-23] MEDS: Levalbuterol Neb 1.25 MG/3 ML IH SCH (22:35)
[2017-06-23] MEDS: *HR* LORazepam 0.5 MG TABLET PO PRN (22:45)
[2017-06-24] MEDS: MethylPREDNISolone 40 MG/ML VIAL IVP SCH ×3 (00:53→21:35)
[2017-06-24] MEDS: Levalbuterol Neb 1.25 MG/3 ML IH SCH ×4 (03:56→20:49)
[2017-06-24 06:22] LABS: Basophils % 0.1 %; Hematocrit 32.9 % (37.5-50.1); Immature Granulocytes % 0.7 % (0-4); Lymphocytes # 0.8 K/mcL (0.6-4.6); Lymphocytes % 3.4 %; Mean Corpuscular HGB Conc 33.4 g/dL (31.6-35.5); Mean Corpuscular Hemoglobin 30.1 pg (28.0-33.3); Mean Corpuscular Volume 90.1 fL (83.0-100.0); Mean Platelet Volume 8.9 fL (9.4-12.4); Monocytes # 0.6 K/mcL (0.0-1.3); Monocytes % 2.4 %; Neutrophils # 21.6 K/mcL (1.6-8.9); Platelet Count 321 K/mcL (140-400); Red Blood Count 3.65 M/mcL (4.19-5.50); Red Cell Distribution Width 11.9 % (11.5-14.5); Segmented Neutrophils % 93.4 %
[2017-06-24 06:25] LABS: BUN/Creatinine Ratio 28 (6-26); Blood Urea Nitrogen 11 mg/dL (8-23); Calcium 8.7 mg/dL (8.6-10.3); Carbon Dioxide 34 mEq/L (23-29); Chloride 98 mEq/L (98-107); Glucose 121 mg/dL (70-105); Osmolality,Calculated 281 (280-300); Phosphorous 3.5 mg/dL (2.7-4.5); Potassium 4.2 mEq/L (3.5-5.1); Sodium 135 mEq/L (136-145); eGFR For African Americans > 60 (> 60); eGFR For Non-African Americans > 60 (> 60)
[2017-06-24 06:48] LABS: Platelet Estimate Normal (Normal)
[2017-06-24] MEDS: Nystatin SUSP 5 ML UD.LIQ PO SCH ×4 (08:28→21:35)
[2017-06-24] MEDS: Levofloxacin 750 MG/150 ML 750 MG/150 ML BAG IVPB SCH (08:28)
[2017-06-24] MEDS: Budesonide/Formoterol 160/4.5 MDI IH SCH ×2 (10:39→20:49)
--- NOTE | 2017-06-24 11:48 | Internal Med Progress Note ---
Date of Encounter: 06/24/17 Time of Encounter: 11:46 - Assessment and plan (1) Pneumonia Current Visit: Yes Status: Acute Assessment and plan: CT chest findings concerning for b/l Lower lobe PNA (right greater than left) continue Levaquin (Day 3) f/u blood cultures (prelim report: NO growth) viral respiratory serologies negative Qualifiers: Pneumonia type: due to unspecified organism Laterality: bilateral Lung location: lower lobe of lung Qualified Code(s): J18.9 - Pneumonia, unspecified organism (2) Acute bronchitis Current Visit: Yes Status: Acute Assessment and plan: mostly bacterial cont empirical abx His resp viral panel - negative Qualifiers: Bronchitis organism: unspecified organism Qualified Code(s): J20.9 - Acute bronchitis, unspecified (3) Acute hypercapnic respiratory failure Current Visit: Yes Status: Acute Assessment and plan: clinically improving saturating well on nasal cannula will need O2 qualification testing prior to discharge Bipap at bedtime (4) Acute respiratory failure with hypoxia Current Visit: Yes Status: Acute Assessment and plan: Improving slowly currently on 2 lit O2 cont Duoneb TATYANA started steroid taper, will d/c IV steroids after tonight's dose and start PO prednisone in am will use BiPAP PRN will need home O2 eval (5) Alcohol dependence Current Visit: Yes Status: Acute Assessment and plan: counseled to stop drinking he has not had any alcohol for one week unlikely he goes to withdrawal symptoms however will monitor closely on Ativan PRN for anxiety Qualifiers: Substance use status: unspecified alcohol-induced disorder Qualified Code(s ): F10.29 - Alcohol dependence with unspecified alcohol-induced disorder (6) COPD with acute exacerbation Current Visit: Yes Status: Acute Assessment and plan: continue systemic steroids bronchodilator support o2 supplementation outpatient PFT evaluation (7) Hyponatremia Current Visit: Yes Status: Acute Assessment and plan: mild hyponatremia - due to dehydration + Chronic alcohol related improving slowly cont close monitoring (8) Protein-calorie malnutrition, mild Current Visit: Yes Status: Acute Assessment and plan: molasses preparer consulted (9) Tobacco dependence Current Visit: Yes Status: Acute Assessment and plan: counseled to quit on nicotine patch - Subjective Interval history: Patient seen and examined with present at bedside. Sitting in chair and reports of feeling better compared to the previous day. Currently saturating well on nasal cannula. Tolerated bipap support overnight. will continue to taper down steroids O2 qualification walk test in am will switch to PO steroids in am, if continues to clinically improve, tentative d/c in am - Constitutional Vitals: Temp Pulse Resp BP Pulse Ox 97.8 F 91 15 124/70 91 06/24/17 10:46 06/24/17 10:46 06/24/17 10:46 06/24/17 10:46 06/24/17 10:46 General appearance: Present: cooperative, A&O X 3, no acute distress, underweight, answers questions appropriately - Head Head exam: Present: atraumatic, normocephalic - Eye Eye exam: Present: conjuntiva pink, sclera anicteric - Respiratory Respiratory exam: Absent: respiratory distress, wheezes (equal air entry bilaterally ) - Cardiovascular Cardiovascular exam: Present: RRR, +S1, +S2. Absent: diastolic murmur, gallop, rubs, systolic murmur - GI/Abdominal GI/Abdominal exam: Present: normal bowel sounds, soft, no peritoneal signs. Absent: distended, tenderness - Extremities Exam Extremities exam: Present: warm, radial pulses palpable and symmetrical. Absent : calf tenderness, pedal edema ((s/p right BKA, prosthesis in place )) - Neurological Exam Neurological exam: Present: alert, oriented X3 - Psychiatric Psychiatric exam: Present: normal affect, normal mood Internal Medicine: Result - Labs CBC & Chem 7: 06/24/17 05:29 06/24/17 05:29 Labs: Short CBC 06/24/17 Range/Units 05:29 WBC 23.1 H (4.3-11.1) K/mcL Hgb 11.0 L (12.9-16.9) g/dL Hct 32.9 L (37.5-50.1) % Plt Count 321 (140-400) K/mcL Neutrophils # 21.6 H (1.6-8.9) K/mcL BMP 06/24/17 05:29 Sodium 135 L Potassium 4.2 Chloride 98 Carbon Dioxide 34 H BUN 11 Creatinine 0.39 L Glucose 121 H Calcium 8.7 Consult Discharge Plan - Plan Referrals: Sandra Aguirre MD [Primary Care Provider] -
[2017-06-24] MEDS: *HR* LORazepam 0.5 MG TABLET PO PRN (21:35)
[2017-06-25] MEDS: Levalbuterol Neb 1.25 MG/3 ML IH SCH ×2 (03:44→10:02)
[2017-06-25 04:52] LABS: Basophils % 0.1 %; Hematocrit 36.6 % (37.5-50.1); Hemoglobin 11.9 g/dL (12.9-16.9); Immature Granulocytes % 0.9 % (0-4); Lymphocytes # 0.8 K/mcL (0.6-4.6); Lymphocytes % 3.9 %; Mean Corpuscular HGB Conc 32.5 g/dL (31.6-35.5); Mean Corpuscular Hemoglobin 29.6 pg (28.0-33.3); Mean Platelet Volume 8.8 fL (9.4-12.4); Monocytes # 0.6 K/mcL (0.0-1.3); Monocytes % 3.2 %; Platelet Count 349 K/mcL (140-400); Red Blood Count 4.02 M/mcL (4.19-5.50); Red Cell Distribution Width 11.8 % (11.5-14.5); Segmented Neutrophils % 91.9 %
[2017-06-25 05:19] LABS: BUN/Creatinine Ratio 27 (6-26); Blood Urea Nitrogen 12 mg/dL (8-23); Calcium 8.7 mg/dL (8.6-10.3); Carbon Dioxide 33 mEq/L (23-29); Chloride 99 mEq/L (98-107); Glucose 126 mg/dL (70-105); Osmolality,Calculated 283 (280-300); Phosphorous 4.2 mg/dL (2.7-4.5); Potassium 4.2 mEq/L (3.5-5.1); Sodium 136 mEq/L (136-145); eGFR For African Americans > 60 (> 60); eGFR For Non-African Americans > 60 (> 60)
[2017-06-25] MEDS ORDERED: levoFLOXacin 750 MG TABLET PO SCH (09:00)
[2017-06-25] MEDS ORDERED: predniSONE 20 MG TABLET PO SCH (09:00)
[2017-06-25] MEDS: Nystatin SUSP 5 ML UD.LIQ PO SCH ×2 (09:15→13:29)
[2017-06-25] MEDS: Budesonide/Formoterol 160/4.5 MDI IH SCH (10:02)
[2017-06-25 10:14] VITALS: BP 130/79
--- NOTE | 2017-06-25 13:47 | Discharge Summary ---
Date of Encounter: 06/25/17 Time of Encounter: 13:40 - Discharge Diagnosis (1) Pneumonia Priority: Primary Status: Acute Qualifiers: Pneumonia type: due to unspecified organism Laterality: bilateral Lung location: lower lobe of lung Qualified Code(s): J18.9 - Pneumonia, unspecified organism (2) Acute bronchitis Priority: Secondary Status: Acute Qualifiers: Bronchitis organism: unspecified organism Qualified Code(s): J20.9 - Acute bronchitis, unspecified (3) Acute hypercapnic respiratory failure Priority: Primary Status: Acute (4) Acute respiratory failure with hypoxia Priority: Primary Status: Acute (5) Alcohol dependence Priority: Secondary Status: Chronic Qualifiers: Substance use status: unspecified alcohol-induced disorder Qualified Code(s ): F10.29 - Alcohol dependence with unspecified alcohol-induced disorder (6) COPD with acute exacerbation Priority: Primary Status: Acute (7) Hyponatremia Priority: Secondary Status: Ruled-out (8) Protein-calorie malnutrition, mild Priority: Secondary Status: Chronic (9) Tobacco dependence Priority: Secondary Status: Chronic - Discharge Medications Prescriptions: Albuterol Sulfate [Albuterol Inhaler] 2 puff IH Q4HR PRN #1 hfa.[email or web address] PRN Reason: Shortness Of Breath Levalbuterol Neb [Xopenex Neb] 1.25 mg IH [id number] PRN #10 vial.neb PRN Reason: Shortness Of Breath levoFLOXacin [Levaquin] 750 mg PO DAILY #3 tablet Metoprolol [Lopressor] 12.5 mg PO BID #60 tablet Home Medications: Albuterol Sulfate [Proair Hfa] 2 puff IH QID PRN 06/21/17 [History] Ergocalciferol (VITAMIN D2) [Vitamin D2] 50,000 unit PO QWEEK 06/21/17 [History] Fluticasone Propionate Nasal [Flonase] 2 spray NS DAILY 06/21/17 [History] Fluticasone/Vilanterol [Breo Ellipta 100-25 Mcg INH] 1 each IH DAILY 06/21/17 [ History] Montelukast [Singulair] 10 mg PO DAILY 06/21/17 [History] Naproxen [Naprosyn] 500 mg PO DAILY 06/21/17 [History] Nystatin [Nystatin Suspension] 100,000 units PO QID 06/21/17 [History] Sertraline [Zoloft] 50 mg PO DAILY 06/21/17 [History] Albuterol Sulfate [Albuterol Inhaler] 2 puff IH Q4HR PRN #1 hfa.aer.ad 06/25/17 [Rx] Levalbuterol Neb [Xopenex Neb] 1.25 mg IH [id number] PRN #10 vial.neb 06/25/17 [Rx] Metoprolol [Lopressor] 12.5 mg PO BID #60 tablet 06/25/17 [Rx] levoFLOXacin [Levaquin] 750 mg PO DAILY #3 tablet 06/25/17 [Rx] predniSONE [PredniSONE] See Taper PO DAILY #0 06/25/17 [Rx] Allergies/Adverse Reactions: 3 Allergy/AdvReac Type Severity Reaction Status Date / Time No Known Allergies Allergy Verified 06/21/17 16:01 Date of admission: 06/21/17 20:17 Primary care physician: Sandra Aguirre MD Consults: 06/23/17 11:04 Consult to [facility] [CONS] Routine Reason for SW Consult: For substance abuse/alcohol Discharging clinician: Mery Santa Anticipated date of discharge: 06/25/17 - Patient Status Disposition: Home, Self-Care Condition: Good Functional capacity at discharge: independent ambulation Overall status at discharge: patient is back to baseline - Discharge Instructions Follow Up With: Sandra Aguirre MD [Primary Care Provider] - 07/03/17 9:45 am Additional Instructions: Please follow up with your primary care physician within five days after your discharge from the hospital. Please follow up with pulmonology within one week after your discharge from the hospital. You were noted to have elevated blood pressure during your hospitalization due to which metoprolol 12.5mg twice a day has been added to your home medications. Closely monitor your blood pressure at home and do not take this medication if your systolic blood pressure is less than 100. Continue to take prednisone as prescribed (prednisone taper) Continue oral antibiotics as prescribed. Albuterol inh and xopenex nebulizer prescriptions are given as per your request Resume all other medications as prescribed by your primary care physician. Smoking cessation is recommended - Diet and Activity Activity: increase activity as tolerated Diet: low salt diet Hospital course: Mr. Farooq is a 61 year old male with PMH Of COPd, chronic smoker who was admitted for PNA and COPD exacerbation. He was started on systemic steroids, IV abx, O2 support, and bronchodilator therapy. He responded appropriately to therapy. He was also noted to be hypertensive and tachycardic and Metoprolol was added to his regimen. he responded well to therapy and is currently back to baseline respiratory status. he did not qualify for home oxygen therapy. He plans to quit smoking after discharge. Pt denies any discomfort at this time and is medically stable for discharge. Pt and demonstrate understanding of his diagnosis and agree with the discharge care and plan. - Time Spent with Patient Total time spent providing and/or coordinating discharge services: Greater than 30 minutes - Constitutional Vitals: Temp Pulse Resp BP Pulse Ox 98.1 F 90 17 130/79 93 06/25/17 10:12 06/25/17 10:12 06/25/17 10:12 06/25/17 10:12 06/25/17 10:12 General appearance: Present: cooperative, A&O X 3, no acute distress, underweight, answers questions appropriately - Eye Eye exam: Present: conjuntiva pink, sclera anicteric - Respiratory Respiratory exam: Present: CTAB. Absent: respiratory distress, wheezes - Cardiovascular Cardiovascular exam: Present: RRR, +S1, +S2. Absent: diastolic murmur, gallop, rubs, systolic murmur - GI/Abdominal GI/Abdominal exam: Present: normal bowel sounds, soft, no peritoneal signs. Absent: distended, tenderness - Extremities Exam Extremities exam: Present: warm, radial pulses palpable and symmetrical. Absent : calf tenderness, cyanotic, pedal edema Additional comments: s/p right BKA, prosthesis in place - Neurological Exam Neurological exam: Present: alert, oriented X3 - Psychiatric Psychiatric exam: Present: normal affect, normal mood
[2017-06-25] MEDS ORDERED: FLUARIX QUAD 2017-18 36MOS UP/PF 0.5 ML SYRINGE IM ONE (14:54)
== END 2017-06-25 15:30 | disposition home or self-care (01) | DRG 193 ==
LOC: 2NENU 15:44 → EMEROO 15:44 → SUATTDRO 20:17 → 2NENU 20:41
PROVIDERS: ADMIT Internal Medicine; ATTEND Internal Medicine

== ENCOUNTER 2017-09-29 09:18 | Observation (INO) ==
--- NOTE | 2017-09-29 08:22 | History & Physical Report ---
Date of Encounter: 09/29/17 Time of Encounter: 08:22 24 Hour HP Update - Instructions Instructions: If the History and Physical is less than 30 days old and was completed prior to A.M. admission and or procedure and has NOT been updated on calendar day of procedure please complete this update prior to performing procedure. - Update Patient reports changes in Medical Condition: No Changes in examination, assessment, or condition: No Changes in Medication: No Preop tests/diagnostics Reviewed: Yes Surgery Remains Indicated: Yes Consent for Planned Operative Procedure(s) Verified: Yes
[2017-09-29] MEDS ORDERED: 0.9 % Sodium Chloride 500 ML ONE ×3 (09:29→12:26)
[2017-09-29] MEDS ORDERED: Clindamycin 600 MG/50 ML 600 MG/50 ML IV.SOLN IVPB ONE (09:48)
[2017-09-29] MEDS ORDERED: *HR* Midazolam HCl 2 MG/2 ML VIAL IVP ONE ×2 (09:48→11:19)
[2017-09-29] MEDS ORDERED: *HR* FentaNYL (PF) 100 MCG/2 ML VIAL IVP ONE ×2 (09:48→11:19)
[2017-09-29 10:31] LABS: INR 1.2; Prothrombin Time 13.3 Seconds (9.4-12.1)
[2017-09-29] MEDS ORDERED: Levalbuterol Neb 1.25 MG/3 ML IH PRN (13:59)
[2017-09-29] MEDS ORDERED: *HR* HYDROcodone/Acet 5/325 mg TABLET PO PRN (17:11)
[2017-09-29] MEDS ORDERED: Naloxone 0.4 MG/ML INJ IVP PRN (17:11)
[2017-09-29] MEDS ORDERED: Acetaminophen 325 MG TABLET PO PRN (17:11)
[2017-09-29] MEDS ORDERED: OXYCODONE Oral CONC 10 MG/0.5 ML ORAL.SYG SL PRN (17:20)
--- NOTE | 2017-09-29 17:38 | Internal Med History&Physical ---
<Abel Whitaker - Last Filed: 09/29/17 18:22> Date of Encounter: 09/29/17 Time of Encounter: 15:30 Internal Medicine - H&P: HPI Chief complaint: G-tube placement in a.m. Admitted From: Direct Admit Plans for Post Hospital Care: Home History of present illness: Mr. Farooq is a 61 year old male w/PMH of COPD w/emphysema, throat cancer, depression, and chronic tobacco abuse presents from Radiology lab d/t unsuccessful G-tube placement today. Pt. reports hx of throat cancer and possible metastatic disease w/unintentional weight loss of >20 pounds. Hospitalization in May 2017 w/COPD exacerbation led to discovery of a mass involving the left piriform sinus and left AE fold. Additional nodule was noted on the posterior aspect of the left true cord. PET/CT showed several level III lymph nodes concerning for metastatic disease. Prophylactic G-tube placement today unsuccessful and will be attempted again in a.m. Pt. reports weakness, difficulty swallowing, SOB, cough, nausea, and intermittent thrush but denies recent illness, fever, chills, vomiting, chest pain, palpitations, changes in vision, unusual bleeding, diarrhea, constipation, dizziness, lightheadedness, pre-syncope, or syncope. Past Med Surg Social Fam HX - Past Medical History Source: patient, old records reviewed, obtained from family Medical history: cancer (Throat), COPD, GERD, hypertension Psychiatric history: depression - Past Surgical History Surgical History: cataract - Social History Smoking Status: Former smoker Smokeless Tobacco Status: No Alcohol use: occasionally Drug use: none Occupational status: retired Current living situation: Home, With Family Activity Level: Independent ambulation Recent Out of Country Travel Within the Last 8 Weeks: No Exposure or Possible Exposure to Illness During Travel: No - Family History Father Race: Family Member Ethnicity: Non- Living Status: Age at : 78 Cause of : COPD/Emphysema Hx Family Respiratory Disorders: Yes (COPD/emphysema) Mother Race: Family Member Ethnicity: Non- Living Status: Age at : 68 Cause of : PA Hx Family Cardiac Disorders: Yes (PA, HLD, HTN) Hx Family Cancer: Yes (Breast) Brother Race: Family Member Ethnicity: Non- Living Status: Still Living Hx Family Respiratory Disorders: Yes (COPD) Hx Family HEENT Disorders: Yes (Glaucoma) Sister Race: Family Member Ethnicity: Non- Living Status: Still Living Hx Family Medical Disorders: No Internal Medicine - H&P: Meds Albuterol Sulfate [Proair Hfa] 2 puff IH QID PRN 06/21/17 [History] Ergocalciferol (VITAMIN D2) [Vitamin D2] 50,000 unit PO FR 06/21/17 [History] Fluticasone/Vilanterol [Breo Ellipta 100-25 Mcg INH] 1 each IH DAILY 06/21/17 [ History] Montelukast [Singulair] 10 mg PO DAILY 06/21/17 [History] Naproxen [Naprosyn] 500 mg PO BID PRN 06/21/17 [History] Nystatin [Nystatin Suspension] 4 ml PO QID 06/21/17 [History] Sertraline [Zoloft] 50 mg PO DAILY 06/21/17 [History] Levalbuterol Neb [Xopenex Neb] 1.25 mg IH [id number] PRN #10 vial.neb 06/25/17 [Rx] Umeclidinium [place] [Incruse Ellipta] 1 puff IH DAILY 09/08/17 [History] GuaiFENesin ER [Mucinex] 600 mg PO BID #30 tbbp.12hr 09/22/17 [Rx] Nutritional Supplement [Osmolite 1.5 Chad] 1 can PO 5XD #150 can 09/25/17 [Rx] Fluticasone Propionate Nasal [Flonase] 2 spr NS DAILY 09/29/17 [History] 3 Allergy/AdvReac Type Severity Reaction Status Date / Time No Known Allergies Allergy Verified 09/24/17 10:12 All Systems PM: A 10-system review of systems was performed and is negative for pertinent findings except as documented above in the HPI. - Constitutional Constitutional: as per HPI, fatigue, weakness, weight loss, no chills, no fever( s), no night sweats - EENT Eyes: no change in vision, no discharge, no pain, no photophobia Ears: no ear discharge, no ear pain, no tinnitus Nose, mouth and throat: as per HPI, hoarseness, sore throat, other (Thrush), no dysphagia, no nasal discharge, no neck pain - Breasts Breasts: as per HPI - Cardiovascular Cardiovascular ROS IM: as per HPI, dyspnea, dyspnea on exertion, no chest pain, no diaphoresis, no lightheadedness, no palpitations, no syncope - Respiratory Respiratory: cough, dyspnea, dyspnea on exertion, no wheezing, no excessive phlegm production - Gastrointestinal Gastrointestinal: as per HPI, nausea, no abdominal pain, no diarrhea, no hematemesis, no hematochezia, no melena, no vomiting - Genitourinary Genitourinary ROS male: as per HPI - Musculoskeletal Musculoskeletal ROS IM: no numbness, no tingling - Integumentary Integumentary IM: no rash, no unusual bruising - Neurological Neurological ROS: as per HPI, weakness, no confusion, no convulsions, no focal weakness, no numbness, no tingling, no tremor(s) - Psychiatric Psychiatric: as per HPI, depression - Endocrine Endocrine IM: as per HPI - Hematologic/Lymphatic Hematologic/Lymphatic: no easy bruising - Allergic/Immunologic Allergic/Immunologic: as per HPI - Constitutional Vitals: Temp Pulse Resp BP Pulse Ox 98.4 F 95 16 121/64 97 09/29/17 15:05 09/29/17 15:05 09/29/17 15:05 09/29/17 15:05 09/29/17 15:05 General appearance: Present: cooperative, A&O X 3, pleasant, underweight, loss of weight, answers questions appropriately - Head Head exam: Present: atraumatic, normocephalic - Eye Eye exam: Present: PERRL, conjuntiva pink, sclera anicteric Pupils: Present: PERRL - ENT ENT exam: Present: normal exam, normal external ear exam - Neck Neck exam general surgery: Present: supple, trachea midline. Absent: lymphadenopathy - Respiratory Respiratory exam: Present: decreased breath sounds, wheezes (Bilateral LLs). Absent: accessory muscle use, rales, rhonchi - Cardiovascular Cardiovascular exam: Present: RRR, +S1, +S2. Absent: diastolic murmur, gallop, rubs, systolic murmur - GI/Abdominal GI/Abdominal exam: Present: normal bowel sounds, soft, no peritoneal signs. Absent: distended, tenderness - Rectal Rectal exam: Present: deferred - Additional comments: exam deferred. - Extremities Exam Extremities exam: Present: warm, radial pulses palpable and symmetrical. Absent : calf tenderness, cyanotic, pedal edema - Back Exam Back exam: Present: normal inspection - Neurological Exam Neurological exam: Present: CN II-XII intact, oriented X3, no focal deficits. Absent: pronater drift, facial droop, speech deficit - Psychiatric Psychiatric exam: Present: normal affect, normal mood - Skin Skin exam: Present: dry, intact Internal Med - H&P Results - Diagnostic Studies Other Images Additional comments: Impressions Incomplete Interventional Procedure 09/29/17 00:00 IMPRESSION: Unsuccessful attempted gastrostomy tube placement using CT guidance and fluoroscopic guidance D/ / Anders Romero MD / Anders Romero MD Interpreting Provider: Anders Romero MD Needle Aspiration CT 09/29/17 10:54 IMPRESSION: Unsuccessful attempted gastrostomy tube placement using CT guidance and fluoroscopic guidance D/ / Anders Romero MD / Anders Romero MD Interpreting Provider: Anders Romero MD - Assessment and plan (1) Unintended weight loss Current Visit: Yes Status: Acute Assessment and plan: Acute on chronic unintended weight loss. Pt. reports 30 pound loss then gained 10 pounds back. States he has no appetite. Nutrition consult ordered for PO supplementation (pt. reports he likes chocolate Boost). Monitor I&O and daily weight. (2) COPD (chronic obstructive pulmonary disease) with emphysema Current Visit: Yes Status: Chronic Assessment and plan: Hx of chronic COPD w/emphysema. Stable. Supplemental O2 and SpO2 monitoring. Xopenex 1.25 IH Q6HR. Continue pts. inhalers. Qualifiers: Emphysema type: unspecified Qualified Code(s): J43.9 - Emphysema, unspecified (3) History of tobacco abuse Current Visit: Yes Status: Chronic Assessment and plan: Hx of former tobacco abuse. Pt. reports quitting after throat cancer dx. Denies need for nicotine patch. (4) Throat cancer Current Visit: Yes Status: Chronic Assessment and plan: Hx of chronic throat cancer. Pt. to f/u w/oncology at [facility] and [facility] as OP. (5) GERD (gastroesophageal reflux disease) Current Visit: Yes Status: Chronic Assessment and plan: Hx of chronic GERD. Zofran 4 mg IVP Q6HR PRN for N/V. Protonix 40 mg IVP daily. Qualifiers: Esophagitis presence: esophagitis presence not specified Qualified Code(s) : K21.9 - Gastro-esophageal reflux disease without esophagitis (6) Depression Current Visit: Yes Status: Chronic Assessment and plan: Hx of chronic depression. Will continue pts. Zoloft. Qualifiers: Depression Type: other depression Qualified Code(s): F32.89 - Other specified depressive episodes (7) DVT prophylaxis Current Visit: Yes Status: Acute Assessment and plan: Bilateral SCDs on LEs for DVT prophylaxis. (8) Pain Current Visit: Yes Status: Acute Assessment and plan: Acute on chronic pain d/t cancer as well as abdominal pain from procedure today. Stair-step pain medications ordered for pain mgmt. Pt. is NPO d/t repeat G-tube procedure in a.m. Pt. to take necessary medications WITH SIPS OF WATER ONLY. Will monitor pt. and f/u labs closely. Pt. discussed w/Dr. Bear who agrees w/plan of care. Pt. is moderate risk for further morbidity d/t current pain and failed G-tube procedure, unintentional weight loss and anorexia, hx of tobacco abuse and cancer, and risk factors. Observation. - Time Spent With Patient Total time spent is greater than 50% in coordination of care (as documented) at patient's floor/unit and/or counseling patient: 25 - 35 minutes <Tacho Bear P - Last Filed: 09/29/17 20:08> Date of Encounter: 09/29/17 Internal Medicine - H&P: HPI History of present illness: Mr. Farooq is a 61 year old male All Systems PM: A 10-system review of systems was performed and is negative for pertinent findings except as documented above in the HPI. - Constitutional Vitals: Temp Pulse Resp BP Pulse Ox 98.4 F 95 16 121/64 97 09/29/17 15:05 09/29/17 15:05 09/29/17 15:05 09/29/17 15:05 09/29/17 15:05 Internal Med - H&P Results - Impressions ITS Impressions Incomplete Interventional Procedure 09/29/17 00:00 IMPRESSION: Unsuccessful attempted gastrostomy tube placement using CT guidance and fluoroscopic guidance D/ / Anders Romero MD / Anders Romero MD Interpreting Provider: Anders Romero MD Needle Aspiration CT 09/29/17 10:54 IMPRESSION: Unsuccessful attempted gastrostomy tube placement using CT guidance and fluoroscopic guidance D/ / Anders Romero MD / Anders Romero MD Interpreting Provider: Anders Romero MD - Attending Attestation I examined this patient and my medical decision-making was reviewed with the Resident Physician/OPERATOR [employer]. I agree with the documented findings, disposition and treatment plan as described except to the extent set forth below. Patient seen and examined. Chart reviewed. Patient is comfortably lying in the bed. Noted that patient is scheduled for procedure tomorrow. Patient's is at bedside. They both wish that this procedure should be under sedation to minimize the pain. Spoke to interventional radiology staff and relayed concerns - Assessment and plan (1) COPD (chronic obstructive pulmonary disease) with emphysema Current Visit: Yes Status: Chronic Qualifiers: Emphysema type: unspecified Qualified Code(s): J43.9 - Emphysema, unspecified (2) History of tobacco abuse Current Visit: Yes Status: Chronic (3) Throat cancer Current Visit: Yes Status: Chronic (4) Unintended weight loss Current Visit: Yes Status: Acute (5) GERD (gastroesophageal reflux disease) Current Visit: Yes Status: Chronic Qualifiers: Esophagitis presence: esophagitis presence not specified Qualified Code(s) : K21.9 - Gastro-esophageal reflux disease without esophagitis (6) DVT prophylaxis Current Visit: Yes Status: Acute (7) Depression Current Visit: Yes Status: Chronic Qualifiers: Depression Type: other depression Qualified Code(s): F32.89 - Other specified depressive episodes (8) Pain Current Visit: Yes Status: Acute - Time Spent With Patient Total time spent is greater than 50% in coordination of care (as documented) at patient's floor/unit and/or counseling patient:
[2017-09-29] MEDS: Pantoprazole 40 MG VIAL IVP SCH (18:00)
[2017-09-29] MEDS: Nystatin SUSP 5 ML UD.LIQ PO SCH (20:38)
[2017-09-30] MEDS: Ondansetron 4 MG/2 ML VIAL IVP SCH ×4 (00:38→19:13)
[2017-09-30 05:27] LABS: Basophils # 0.1 K/mcL (0.0-0.2); Basophils % 0.4 %; Eosinophils # 0.3 K/mcL (0.0-0.6); Eosinophils % 2.2 %; Hematocrit 37.9 % (37.5-50.1); Hemoglobin 12.5 g/dL (12.9-16.9); Immature Granulocytes % 0.5 % (0-4); Lymphocytes # 1.6 K/mcL (0.6-4.6); Lymphocytes % 13.6 %; Mean Corpuscular Hemoglobin 29.3 pg (28.0-33.3); Mean Corpuscular Volume 88.8 fL (83.0-100.0); Mean Platelet Volume 9.3 fL (9.4-12.4); Monocytes # 0.9 K/mcL (0.0-1.3); Monocytes % 7.3 %; Neutrophils # 9.1 K/mcL (1.6-8.9); Platelet Count 359 K/mcL (140-400); Red Blood Count 4.27 M/mcL (4.19-5.50)
[2017-09-30 05:33] LABS: Alanine Aminotransferase 17 Units/L (7-52); Albumin 4.1 g/dL (3.5-5.7); Albumin/Globulin Ratio 1.6 (1.1-2.2); Alkaline Phosphatase 79 Units/L (34-104); Aspartate Amino Transferase 19 Units/L (13-39); BUN/Creatinine Ratio 22 (6-26); Bilirubin,Total 0.9 mg/dL (0.3-1.0); Blood Urea Nitrogen 14 mg/dL (8-23); Calcium 9.4 mg/dL (8.6-10.3); Carbon Dioxide 27 mEq/L (23-29); Chloride 99 mEq/L (98-107); Chol/HDL Ratio 3.4 (0-4.9); Cholesterol 146 mg/dL (< 200); Globulin 2.6 g/dL (2.4-3.5); Glucose 97 mg/dL (70-105); HDL Cholesterol 43 mg/dL (40-59); LDL Cholesterol,Calculated 91 mg/dL (0-99); Magnesium 2.2 mg/dL (1.6-2.6); Osmolality,Calculated 282 (280-300); Potassium 4.4 mEq/L (3.5-5.1); Sodium 136 mEq/L (136-145); Total Protein 6.7 g/dL (6.4-8.9); Triglycerides 62 mg/dL (< 150); eGFR For African Americans > 60 (> 60); eGFR For Non-African Americans > 60 (> 60)
[2017-09-30] MEDS: Levalbuterol Neb 1.25 MG/3 ML IH PRN ×2 (08:22→16:20)
[2017-09-30] MEDS ORDERED: Cholecalciferol (D-3) 1,000 UNIT TABLET PO SCH (09:00)
[2017-09-30] MEDS ORDERED: Fluticasone Propionate Nasal 50 MCG/SPRAY BOTTLE NS SCH (09:00)
[2017-09-30] MEDS ORDERED: (Umeclidinium Bromide [Incruse Ellipta] 1 PUFF) IH SCH (09:00)
[2017-09-30] MEDS ORDERED: (Fluticasone/Vilanterol [Breo Ellipta 100-25 Mcg Inh] IH SCH (09:00)
[2017-09-30] MEDS: Nystatin SUSP 5 ML UD.LIQ PO SCH ×3 (09:44→18:12)
[2017-09-30] MEDS: Pantoprazole 40 MG VIAL IVP SCH (09:45)
[2017-09-30] MEDS ORDERED: 0.9 % Sodium Chloride 1,000 ML IVC SCH (11:00)
[2017-09-30] MEDS ORDERED: 0.9 % Sodium Chloride 1,000 ML ONE (11:03)
--- NOTE | 2017-09-30 12:09 | General Surgery Consult Note ---
Date of Encounter: 09/30/17 Time of Encounter: 12:00 Assessment and Plan (1) Throat cancer Current Visit: Yes Status: Chronic Plan for percutaneous feeding tube placement today with Dr. Coker Discussed the risks, benefits, alternatives and expected outcomes with the patient and his and they are in agreement to proceed NPO for procedure IV fluids for hydration while NPO May discharge to home after peg tube placed from a surgical standpoint May resume soft diet after peg tube placed Continue with home health for feeding tube management ( reports that this has already been arranged) (2) Unintended weight loss Current Visit: Yes Status: Acute See plan above History of Present Illness Consult date: 09/29/17 Reason for consult: other (peg tube placement) Requesting physician: Kayla Polanco History of present illness: Mr. Farooq is a 61 year old male who has a history of throat cancer. He is being following by oncology and is in need of a feeding tube in preparation for treatments for his throat cancer. Intervention Radiology attempted to place a feeding tube yesterday and were unsuccessful. We have been asked to see and evaluate the patient today for percutaneous feeding tube placement with endoscopy. The patient has had a 30 lb. weight loss since March of 2017. He denies any dysphagia. He is tolerating soft foods without difficulty at this time. Denies any fevers/chills. Denies any shortness of breath of chest pains. Past Med Surg Social Fam HX - Past Medical History Medical history: cancer (Throat), COPD, GERD, hypertension Psychiatric history: depression - Past Surgical History Surgical History: cataract - Social History Smoking Status: Former smoker Smokeless Tobacco Status: No Alcohol use: occasionally Drug use: none - Family History Father Race: Family Member Ethnicity: Non- Living Status: Age at : 78 Cause of : COPD/Emphysema Hx Family Respiratory Disorders: Yes (COPD/emphysema) Mother Race: Family Member Ethnicity: Non- Living Status: Age at : 68 Cause of : IN Hx Family Cardiac Disorders: Yes ([place], HLD, HTN) Hx Family Cancer: Yes (Breast) Brother Race: Family Member Ethnicity: Non- Living Status: Still Living Hx Family Respiratory Disorders: Yes (COPD) Hx Family HEENT Disorders: Yes (Glaucoma) Sister Race: Family Member Ethnicity: Non- Living Status: Still Living Hx Family Medical Disorders: No Medications and Allergies Albuterol Sulfate [Proair Hfa] 2 puff IH QID PRN 06/21/17 [History] Ergocalciferol (VITAMIN D2) [Vitamin D2] 50,000 unit PO FR 06/21/17 [History] Fluticasone/Vilanterol [Breo Ellipta 100-25 Mcg INH] 1 each IH DAILY 06/21/17 [ History] Montelukast [Singulair] 10 mg PO DAILY 06/21/17 [History] Naproxen [Naprosyn] 500 mg PO BID PRN 06/21/17 [History] Nystatin [Nystatin Suspension] 4 ml PO QID 06/21/17 [History] Sertraline [Zoloft] 50 mg PO DAILY 06/21/17 [History] Levalbuterol Neb [Xopenex Neb] 1.25 mg IH [id number] PRN #10 vial.neb 06/25/17 [Rx] Umeclidinium [place] [Incruse Ellipta] 1 puff IH DAILY 09/08/17 [History] GuaiFENesin ER [Mucinex] 600 mg PO BID #30 tbbp.12hr 09/22/17 [Rx] Nutritional Supplement [Osmolite 1.5 [place]] 1 can PO 5XD #150 can 09/25/17 [Rx] Fluticasone Propionate Nasal [Flonase] 2 spr NS DAILY 09/29/17 [History] 3 Allergy/AdvReac Type Severity Reaction Status Date / Time No Known Allergies Allergy Verified 09/24/17 10:12 Review of Systems All systems PM: reviewed and no additional remarkable complaints except as stated (in the HPI) All systems PM: The remainder of the systems were reviewed and are negative General Surgery Exam Initial Vital Signs Pulse Resp BP Pulse Ox 96 15 153/77 100 09/29/17 11:06 09/29/17 11:06 09/29/17 11:06 09/29/17 11:06 - General physical appearance well developed, no distress, cachectic, chronically ill - Eyes PERRL, normal ocular movement - ENT normal mucosa, atraumatic, normocephalic - Neck trachea midline - Respiratory normal respiratory effort, clear to auscultation - Cardiovascular Cardiovascular exam: Present: tachycardia (mildly) - Abdomen Abdomen general surgery: Present: bowel sounds present, soft, tender (mildly left abdomen from previously attempted feeding tube placement) - Incision Incision: Present: clean and dry, intact - Integumentary Integumentary general surgery: Present: warm and dry - Neurologic Present: CN 2-12 grossly intact - Musculoskeletal Present: normal gait, normal posture - Psychiatric Psychiatric general surgery: Present: appropriate, oriented to person, oriented to place, oriented to time, speech is normal, memory intact Exam Initial Vital Signs Pulse Resp BP Pulse Ox 96 15 153/77 100 09/29/17 11:06 09/29/17 11:06 09/29/17 11:06 09/29/17 11:06 Results - Labs 09/30/17 04:29 09/30/17 04:29 Abnormal lab results WBC 12.0 K/mcL (4.3-11.1) H 09/30/17 04:29 Hgb 12.5 g/dL (12.9-16.9) L 09/30/17 04:29 MPV 9.3 fL (9.4-12.4) L 09/30/17 04:29 Neutrophils # 9.1 K/mcL (1.6-8.9) H 09/30/17 04:29 PT 13.3 Seconds (9.4-12.1) H 09/29/17 09:37 Creatinine 0.64 mg/dL (0.70-1.30) L 09/30/17 04:29 Diabetes panel 09/30/17 Range/Units 04:29 Sodium 136 (136-145) mEq/L Potassium 4.4 (3.5-5.1) mEq/L Chloride 99 (98-107) mEq/L Carbon Dioxide 27 (23-29) mEq/L BUN 14 (8-23) mg/dL Creatinine 0.64 L (0.70-1.30) mg/dL Glucose 97 (70-105) mg/dL Calcium 9.4 (8.6-10.3) mg/dL AST 19 (13-39) Units/L ALT 17 (7-52) Units/L Alkaline Phosphatase 79 (34-104) Units/L Albumin 4.1 (3.5-5.7) g/dL Triglycerides 62 (< 150) mg/dL HDL Cholesterol 43 (40-59) mg/dL Calcium panel 09/30/17 Range/Units 04:29 Calcium 9.4 (8.6-10.3) mg/dL Albumin 4.1 (3.5-5.7) g/dL Pituitary panel 09/30/17 Range/Units 04:29 Sodium 136 (136-145) mEq/L Potassium 4.4 (3.5-5.1) mEq/L Chloride 99 (98-107) mEq/L Carbon Dioxide 27 (23-29) mEq/L BUN 14 (8-23) mg/dL Creatinine 0.64 L (0.70-1.30) mg/dL Glucose 97 (70-105) mg/dL Calcium 9.4 (8.6-10.3) mg/dL Adrenal panel 09/30/17 Range/Units 04:29 Sodium 136 (136-145) mEq/L Potassium 4.4 (3.5-5.1) mEq/L Chloride 99 (98-107) mEq/L Carbon Dioxide 27 (23-29) mEq/L BUN 14 (8-23) mg/dL Creatinine 0.64 L (0.70-1.30) mg/dL Glucose 97 (70-105) mg/dL Calcium 9.4 (8.6-10.3) mg/dL Total Bilirubin 0.9 (0.3-1.0) mg/dL AST 19 (13-39) Units/L ALT 17 (7-52) Units/L Alkaline Phosphatase 79 (34-104) Units/L Albumin 4.1 (3.5-5.7) g/dL All other labs normal. - Imaging Additional studies: Incomplete Interventional Procedure 09/29/17 00:00 IMPRESSION: Unsuccessful attempted gastrostomy tube placement using CT guidance and fluoroscopic guidance D/ / Anders Romero MD / Anders Romero MD Interpreting Provider: Anders Romero MD Needle Aspiration CT 09/29/17 10:54 IMPRESSION: Unsuccessful attempted gastrostomy tube placement using CT guidance and fluoroscopic guidance D/ / Anders Romero MD / Anders Romero MD Interpreting Provider: Anders Romero MD Consult Discharge Plan - Plan Referrals: Nadir Lloyd CNP [Primary Care Provider] - Sandra Aguirre MD [Family Provider] - - Attending Attestation For this encounter, I have reviewed the SLIP MIXER or PA documentation, treatment plan, and medical decision making; and I have had face to face time with this patient.
[2017-09-30] MEDS ORDERED: ceFAZolin 2,000 MG in D5% in Water 100 ML IVPB ONE (13:02)
--- NOTE | 2017-09-30 13:39 | Discharge Summary ---
- NOTES TO OUTPATIENT PROVIDER Notes to Outpatient Provider: Recommend follow-up within 7-10 days Orders not resulted at time of discharge: Pending orders 10/01/17 04:00 Complete Blood Count [HEME] AM 0400 Comprehensive Metabolic Panel AM 0400 10/02/17 04:00 Complete Blood Count [HEME] AM 0400 Comprehensive Metabolic Panel AM 0400 Date of Encounter: 09/30/17 Time of Encounter: 13:37 - Discharge Diagnosis (1) COPD (chronic obstructive pulmonary disease) with emphysema Priority: Secondary Status: Chronic Qualifiers: Emphysema type: unspecified Qualified Code(s): J43.9 - Emphysema, unspecified (2) History of tobacco abuse Priority: Secondary Status: Chronic (3) Throat cancer Priority: Secondary Status: Chronic (4) Unintended weight loss Priority: Primary Status: Acute (5) GERD (gastroesophageal reflux disease) Priority: Secondary Status: Chronic Qualifiers: Esophagitis presence: esophagitis presence not specified Qualified Code(s) : K21.9 - Gastro-esophageal reflux disease without esophagitis (6) Depression Priority: Secondary Status: Chronic Qualifiers: Depression Type: other depression Qualified Code(s): F32.89 - Other specified depressive episodes (7) Pain Priority: Primary Status: Acute Hospital course: Mr. Farooq is a 61 year old male with PMH of COPD w/emphysema, throat cancer, depression, and chronic tobacco abuse presented to [facility] on 09/29/2017 from Radiology department due to and unsuccessful G-tube placement. He was placed in observation status for general surgery consultation and G-tube placement. He had a G-tube placed per Dr. Coker and was discharged home in stable condition with outpatient follow-up. Home health care in place prior to hospitalization with tube feeding and supplies at home. He was discharged home once recovered from sedation in stable condition. Discharge discussed with: patient - Time Spent with Patient Total time spent providing and/or coordinating discharge services: - Discharge Medications Home Medications: Albuterol Sulfate [Proair Hfa] 2 puff IH QID PRN 06/21/17 [History] Ergocalciferol (VITAMIN D2) [Vitamin D2] 50,000 unit PO FR 06/21/17 [History] Fluticasone/Vilanterol [Breo Ellipta 100-25 Mcg INH] 1 each IH DAILY 06/21/17 [ History] Montelukast [Singulair] 10 mg PO DAILY 06/21/17 [History] Naproxen [Naprosyn] 500 mg PO BID PRN 06/21/17 [History] Nystatin [Nystatin Suspension] 4 ml PO QID 06/21/17 [History] Sertraline [Zoloft] 50 mg PO DAILY 06/21/17 [History] Levalbuterol Neb [Xopenex Neb] 1.25 mg IH [id number] PRN #10 vial.neb 06/25/17 [Rx] Umeclidinium [place] [Incruse Ellipta] 1 puff IH DAILY 09/08/17 [History] GuaiFENesin ER [Mucinex] 600 mg PO BID #30 tbbp.12hr 09/22/17 [Rx] Nutritional Supplement [Osmolite 1.5 [place]] 1 can PO 5XD #150 can 09/25/17 [Rx] Fluticasone Propionate Nasal [Flonase] 2 spr NS DAILY 09/29/17 [History] Zolpidem [Ambien] 5 mg PO HS PRN 30 Days #30 tablet 10/07/17 [Rx] Allergies/Adverse Reactions: 3 Allergy/AdvReac Type Severity Reaction Status Date / Time No Known Allergies Allergy Verified 10/07/17 15:23 Date of admission: 09/29/17 14:40 Primary care physician: Nadir Lloyd CNP Consults: 09/29/17 16:09 Consult to Nutrition [CONS] Routine Comment: Patient prefers Boost chocolate Consulting Provider: NUTRITION Reason for Dietary Consult: MST Score PO Supplementation 09/29/17 17:18 Consult to Hazard Mitigation Officer [CONS] Routine Reason for SW Consult: Please assess patient for possible home needs for post -discharge planning. 09/30/17 10:44 Consult to Surgery [CONS] Routine Consulting Provider: [facility] Reason for Consult: PEG tube placement Call Completed: Yes Discharging clinician: Kayla Polanco Anticipated date of discharge: 09/30/17 - Constitutional Vitals: Temp Pulse Resp BP Pulse Ox 98.4 F 102 16 108/59 96 09/30/17 10:28 09/30/17 10:28 09/30/17 10:28 09/30/17 10:28 09/30/17 10:28 General appearance: Present: cachectic, cooperative, A&O X 3, pleasant, underweight, loss of weight, answers questions appropriately - Head Head exam: Present: atraumatic, normocephalic - Eye Eye exam: Present: PERRL, conjuntiva pink, sclera anicteric Pupils: Present: PERRL - Neck Neck exam general surgery: Present: supple, trachea midline. Absent: lymphadenopathy - Respiratory Respiratory exam: Present: CTAB. Absent: accessory muscle use, rales, rhonchi, wheezes - Cardiovascular Cardiovascular exam: Present: RRR, +S1, +S2. Absent: diastolic murmur, gallop, rubs, systolic murmur - GI/Abdominal GI/Abdominal exam: Present: normal bowel sounds, soft, no peritoneal signs. Absent: distended, tenderness - Extremities Exam Extremities exam: Present: warm, radial pulses palpable and symmetrical. Absent : calf tenderness, cyanotic, pedal edema Additional comments: Left BKA - Neurological Exam Neurological exam: Present: CN II-XII intact, oriented X3, no focal deficits. Absent: pronater drift, facial droop, speech deficit - Skin Skin exam: Present: dry, intact - Patient Status Disposition: Home Health Service Condition: Good Functional capacity at discharge: independent ambulation Overall status at discharge: patient is back to baseline - Discharge Instructions Instructions: Percutaneous Endoscopic Gastrostomy Insertion (DC), Tube Feeding (DC) Follow Up With: Nadir Lloyd CNP [Primary Care Provider] - 10/06/17 10:30 am (Please appointment to follow-up with your PCP within 7-10 days) Additional Instructions: Please follow up with dietitian at [facility] for recommendations on supplemental tube feedings. - Diet and Activity Activity: increase activity as tolerated Diet: advance to your usual diet
[2017-09-30] MEDS ORDERED: *HR* Midazolam HCl 5 MG/5 ML VIAL IVP ONE (16:45)
[2017-09-30] MEDS ORDERED: *HR* FentaNYL (PF) 100 MCG/2 ML VIAL ONE (16:46)
[2017-09-30] MEDS ORDERED: *HR* Midazolam HCl 2 MG/2 ML VIAL IVP ONE (16:58)
[2017-09-30] MEDS ORDERED: *HR* FentaNYL (PF) 100 MCG/2 ML VIAL IVP ONE (16:58)
[2017-09-30] MEDS ORDERED: Simethicone 40 MG/0.6 ML MLS IR ONE (16:58)
[2017-09-30] MEDS ORDERED: Tetracaine/Benzocaine/Butamben 200MG/SPRAY (100SPY/BOT) MM ONE (16:58)
--- NOTE | 2017-09-30 16:59 | Pre-Sedation Evaluation ---
Pre-sedation evaluation - Pre-sedation checklist Date of procedure: 09/29/17 Procedure: g tube Recent Vitals: Last Vital Signs Temp 98.3 F 09/30/17 14:21 Pulse 108 09/30/17 16:54 Resp 16 09/30/17 16:54 BP 136/68 09/30/17 16:54 Pulse Ox 100 09/30/17 16:54 H&P (including ROS) documented in medical record: Yes Previous reaction to sedatives/anesthetics: No Dietary Status: NPO after Midnight Airway Assessment: Patient can open mouth completely, TMJ function normal Dentition: dentures removed Possible difficult airway: No ASA Classification *see protocol: CLASS III-Severe systemic disease
[2017-09-30 18:50] VITALS: BP 120/71
== END 2017-09-30 20:57 | disposition home health service (06) ==
LOC: 3ANU 09:18 → LAB 09:18 → SUATTDRO 14:40
PROVIDERS: ADMIT Internal Medicine Cardiovascular Disease; ATTEND Internal Medicine